=== PATIENT | female | born 1930 | race Caucasian/White ===

== ENCOUNTER → 2017-09-01 | Outpatient (CLI) | payer MEDICARE, OTHER ==
[~2017-09-01] MED LIST: ACETAMINOPHEN-1 EAC4; AMOXICILLIN875 MG PO; ANTIVERT12.5 MG PO; ASPIRIN81 M2 PO; BUSPAR10 MG PO; BUSPAR30 MG PO; CALCIUM PO; CARAFATE100 MG/ML PO; CIPRO250 MG PO; CIPROFLOXACIN250 MG PO; COMPAZINE10 MG PO; DICYCLOMINE HCL10 MG PO; FAMOTIDINE20 MG PO; FLAGYL500 MG PO; KEFLEX500 MG PO; LEVAQUIN500 MG PO; LEVOTHYROXINE75 MCG PO; LISINOPRIL20 MG PO; LOPRESSOR100 M1 PO; LOPRESSOR100 MG PO; Levaquin PO; Levothroid,Synthroid PO; MACROBID100 MG PO; NEXIUM20 MG PO; NEXIUM40 MG PO; OMEPRAZOLE20 MG; PAIN RELIEF650 MG PO; PERCOCET 5/31 TABLET PO; POTASSIUM CHLORIDE PO; PREDNISONE10 M1 PO; PRILOSEC20 MG PO; PRINIVIL10 MG PO; PROTONIX40 MG PO; Protonix IV; SYNTHROID100 MCG PO; SYNTHROID25 MCG PO; ZOFRAN ODT4 MG PO; ZOFRAN4 MG PO; ZUPLENZ4 MG
== END | disposition home or self-care (01) ==
LOC: CDC 14:56
DX: Z01.810 Encounter for preprocedural cardiovascular examination (principal); H25.11 Age-related nuclear cataract, right eye; I44.0 Atrioventricular block, first degree
CPT/HCPCS: 93000